=== PATIENT | male | born 1990 | race Caucasian/White ===

== ENCOUNTER 2021-09-09 17:36 | Emergency (ER) | payer OTHER, SELFPAY ==
--- NOTE | ~2021-09-09 | XR_ITS ---
XR finger 1st RT min 2V 09/09/2021 18:12 Indication: Right first finger pain after trauma Procedure: 3 views right first finger Comparison: No prior studies for comparison. Findings: There is an oblique nondisplaced fracture ventral base right first distal phalanx. Mild sof t tissue swelling. No foreign bodies. Impression: 1: Oblique nondisplaced fracture ventral base right first distal phalanx. Reviewed, dictated and finalized at location A. Impression: 1: Oblique nondisplaced fracture ventral base right first distal phalanx.
[2021-09-09 17:38] VITALS: BP 142/110; PULSE 73; RESP 18; TEMP 36.3; O2SAT 100
--- NOTE | 2021-09-09 17:56 | ED.UPPEXIN ---
HPI - Extremity Injury (Upper) General Chief Complaint: Extremity Injury, Upper <MYRNA Huffman Last Filed: 09/09/21 18:49> Stated Complaint: right thumb injury <MYRNA Huffman Last Filed: 09/09/21 18:49> Time Seen by Provider: 09/09/21 17:45 <MYRNA Huffman Last Filed: 09/09/21 18:49> Source: patient <MYRNA Huffman Last Filed: 09/09/21 18:49> Mode of arrival: ambulatory <MYRNA Huffman Last Filed: 09/09/21 18:49> Limitations: no limitations <MYRNA Huffman Last Filed: 09/09/21 18:49> History of Present Illness HPI narrative: This is a 31-year-old male that presents to the emergency department for right first finger injury sustained this morning. Reports he was playing his [employer] game. Reports he accidentally punched a wall. Reports bruising and swelling to the right first finger. Pain is worse with movement and relieved with rest. Pain is mostly at the interphalangeal joint. Denies decreased range of motion or numbness. <MYRNA Huffman Last Filed: 09/09/21 18:49> Related Data Home Medications: Home Medications Medication Instructions Recorded Confirmed No Home Medications 09/09/21 09/09/21 <MYRNA Huffman Last Filed: 09/09/21 18:49> Allergies/Adverse Reactions: Allergies Allergy/AdvReac Type Severity Reaction Status Date / Time No Known Allergies Allergy Verified 09/09/21 17:41 <MYRNA Huffman Last Filed: 09/09/21 18:49> Review of Systems Review of Systems: CONSTITUTIONAL: Denies fever MUSCULOSKELETAL: Reports joint pain, and myalgia. NEUROLOGIC: Denies numbness <MYRNA Huffman Last Filed: 09/09/21 18:49> All systems reviewed & are unremarkable except as noted in HPI and below <MYRNA Huffman Last Filed: 09/09/21 18:49> [facility] Past Medical History Medical History: Medical History (Updated 09/09/21 @ 18:49 by Akua Mcdonnell PA-C) No active medical problems <Akua Mcdonnell PA-C - Last Filed: 09/09/21 18:49> Social History Social History: Social History (Updated 09/09/21 @ 17:58 by Akua Mcdonnell PA-C) Substance use: never <Akua Mcdonnell PA-C - Last Filed: 09/09/21 18:49> Exam Narrative: GENERAL: Well-appearing, well-nourished, and in no acute distress. HEAD: Normocephalic, atraumatic. EYES: EOMI. EXTREMITIES: Normal range of motion. No obvious deformity. Right first finger with mild bruising. Normal radial pulses. Normal sensation SKIN: Warm, dry, no rash. NEURO: No focal deficits. Alert and oriented x3. PSYCH: Normal mood and affect <Akua Mcdonnell PA-C - Last Filed: 09/09/21 18:49> Course FINANCE ADMINISTRATOR/PA Physician Supervision I did not see this patient nor was the care plan discussed with me. I was available for evaluation and consultation, I agree with the documentation as above <Zaid Pena MD - Last Filed: 09/09/21 19:17> Vital Signs Vital signs: Vital Signs Temperature 36.3 C L 09/09/21 17:38 Pulse Rate 73 09/09/21 17:38 Respiratory Rate 18 09/09/21 17:38 Blood Pressure 142/110 H 09/09/21 17:38 Pulse Oximetry 100 09/09/21 17:38 Temperature 36.3 C L 09/09/21 17:38 Pulse Rate 73 09/09/21 17:38 Respiratory Rate 18 09/09/21 17:38 Blood Pressure 142/110 H 09/09/21 17:38 Pulse Oximetry 100 09/09/21 17:38 <Akua Mcdonnell PA-C - Last Filed: 09/09/21 18:49> Vital Signs Temperature 36.3 C L 09/09/21 17:38 Pulse Rate 73 09/09/21 17:38 Respiratory Rate 18 09/09/21 17:38 Blood Pressure 142/110 H 09/09/21 17:38 Pulse Oximetry 100 09/09/21 17:38 Temperature 36.3 C L 09/09/21 17:38 Pulse Rate 73 09/09/21 17:38 Respiratory Rate 18 09/09/21 17:38 Blood Pressure 142/110 H 09/09/21 17:38 Pulse Oximetry 100 09/09/21 17:38 <Zaid Pena MD - Last Filed: 09/09/21 19:17> MDM - Extremity Injury (Upper) MDM Jonnathan
== END 2021-09-09 18:55 | disposition home or self-care (01) ==
PROVIDERS: Emergency Provider Emergency Medicine
DX: S62.660A Nondisplaced fracture of distal phalanx of right index finger, initial encounter for closed fracture (principal); W22.01XA Walked into wall, initial encounter; Y93.C2 Activity, hand held interactive electronic device
CPT/HCPCS: 29130; 73140; 99284

== ENCOUNTER 2021-10-16 11:37 | Outpatient (CLI) | payer OTHER, SELFPAY ==
[2021-10-16 13:09] LABS: Influenza A QL RT-PCR Negative (Negative); Influenza B QL RT-PCR Negative (Negative); SARS-CoV-2 RNA PCR Negative (Negative)
== END 2021-10-16 11:38 | disposition home or self-care (01) ==
PROVIDERS: PCP Family Medicine; Visit Provider Nurse Practitioner Family
DX: J06.9 Acute upper respiratory infection, unspecified (principal); Z20.822 Contact with and (suspected) exposure to COVID-19
CPT/HCPCS: 87502; C9803; U0003; U0005

== ENCOUNTER 2022-10-09 17:20 | Emergency (ER) | payer OTHER, SELFPAY ==
--- NOTE | ~2022-10-09 | XR_ITS ---
XR chest 2V DATE: 10/09/2022 17:43 INDICATION: Fever, fatigue TECHNIQUE: 2 views COMPARISON: None FINDINGS: Bilateral hyperinflation. No pulmonary infiltrate or consolidation, pleural effusion or pul monary vascular congestion or pneumothorax. There is old pulmonary granulomatous disease. Normal heart size. No hilar or mediastinal enlargement. Minimal thoracolumbar dextroscoliosis. IMPRESSION: Bilateral hyperinflation; no active cardiopulmonary disease Reviewed, dictated and finalized at location A. OR WEB DEVELOPER
--- NOTE | 2022-10-09 17:24 | ED.URI ---
HPI - URI/Sore Throat General Chief Complaint: Upper Respiratory Infection Stated Complaint: BODY ACHES/COUGH/SNEEZING Time Seen by Provider: 10/09/22 17:28 Source: patient and RN notes reviewed Mode of arrival: ambulatory Limitations: no limitations History of Present Illness HPI Narrative: 32-year-old male presents with concern for 90 day history of body aches, cough, sneezing. He reports his daughter was diagnosed with influenza. He reports achiness of the mid back and under his arms. He denies shortness of breath. He denies fever. Reports some sweats and chills. He reports he has occasionally taken some [id number] multi symptom cold medicine med has not taken anything recently. MD elicited complaint: cough Related Data Allergies Allergy/AdvReac Type Severity Reaction Status Date / Time No Known Allergies Allergy Verified 10/09/22 17:34 Review of Systems Review of Systems: CONSTITUTIONAL: Reports malaise, chills, sweats EYES: Denies visual changes, redness, or discharge. ENT: Reports rhinorrhea, congestion, sneezing. Denies sinus pain, otalgia and sore throat. CARDIOVASCULAR: Denies chest pain, palpitations, or edema. RESPIRATORY: Reports cough. Denies dyspnea. GASTROINTESTINAL: Denies abdominal pain, nausea, vomiting, diarrhea SKIN: Denies rash or itching. MUSCULOSKELETAL: Reports myalgia. NEUROLOGIC: Reports headache. All systems reviewed & are unremarkable except as noted in HPI and below PMFSH Past Medical History Medical History (Updated 10/09/22 @ 17:52 by Janay Guzman NP) No active medical problems Social History Social History (Updated 09/09/21 @ 17:58 by Akua Mcdonnell PA-C) Substance use: never Comments At time of signature, agree with nursing past medical, surgical, social and family history. There is no relevant family history pertinent to the presenting complaint Exam Narrative: GENERAL: Nontoxic-appearing and in no acute distress. HEAD: Normocephalic EYES: PERRLA, conjunctivae clear ENT: Nares clear, turbinates edematous and erythematous, clear discharge. Mucous membranes moist. TM pearly johnson with sharp light reflex bilaterally; no tragal tenderness. Oropharynx not erythematous without lesions. Tonsils not enlarged and without exudate, no drooling, no hoarseness, no trismus, uvula midline. NECK: Supple. No lymphadenopathy CHEST: Scattered rhonchi, diminished in the bases. No wheezing, rhonchi, rales, or stridor. No respiratory distress, speaks in full sentences. HEART: Regular rate and rhythm. No murmur heard. SKIN: Warm, dry, no rash. NEURO: Alert and oriented x3. PSYCH: Normal mood and affect Course Course Emergency Course: Patient is aware of diagnosis, understands and agrees to treatment plan. Anticipatory guidance given. Patient agrees to follow-up as directed and is aware of reasons to seek care at the emergency department. Portions of this record may have been created with voice recognition software Level of Care: Express Care Visit Vital Signs Vital signs: Reviewed. MDM - URI/Sore Throat MDM Narrative Medical decision making narrative: Differential diagnosis considered: Schafer virus, strep pharyngitis, allergic rhinitis, upper respiratory tract infection, sinusitis, rhinosinusitis, nasopharyngitis. viral pharyngitis, otitis media, otitis externa, pneumonia, bronchitis, viral cough syndrome, viral syndrome, and influenza. Exam findings show no acute concerns or changes; patient is non-toxic appearing and is in no distress. Patient is appropriate for outpatient treatment and follow-up. Lab Data Attestation: I reviewed the patient's lab results. Imaging Data My impression: Images reviewed, interpreted by radiologist, agree, see report. Radiologist's impression: XR chest 2V DATE: 10/09/2022 17:43 INDICATION: Fever, fatigue? TECHNIQUE: 2 views? COMPARISON: None? FINDINGS: Bilateral hyperinflation. No pulmonary infiltrate or consolidation, pleural
[2022-10-09 17:34] VITALS: BP 118/70; PULSE 130; RESP 16; TEMP 37.6; O2SAT 98
== END 2022-10-09 18:00 | disposition home or self-care (01) ==
PROVIDERS: Emergency Provider Nurse Practitioner; PCP Family Medicine
DX: J40 Bronchitis, not specified as acute or chronic (principal)
CPT/HCPCS: 71046; 87804; 99213; G0463

== ENCOUNTER 2023-02-03 14:41 | Emergency (ER) | payer OTHER, SELFPAY ==
[2023-02-03 14:51] VITALS: BP 99/76; PULSE 129; RESP 16; TEMP 38.8; O2SAT 98
[2023-02-03 14:53] VITALS: BP 99/76; PULSE 129; RESP 16; TEMP 38.8; O2SAT 98
--- NOTE | 2023-02-03 15:38 | ED.URI ---
HPI - URI/Sore Throat General Chief Complaint: Upper Respiratory Infection Stated Complaint: sore throat,chills Time Seen by Provider: 02/03/23 15:38 Source: patient, RN notes reviewed and old records reviewed Mode of arrival: ambulatory Limitations: no limitations History of Present Illness HPI Narrative: 32 year old male who presents to the [facility] care with complaints of sore throat and chills today. Patient reports that his daughter had strep and also COVID last week. He states he did home COVID test 2 days ago and was negative, he has had COVID vaccinations.. Patient reports that he just started using CPAP thought that might be why throat was so dry feeling. Patient was also just diagnosed with Graves disease and just started on Medication today of methimazole,has lost 25 lbs recently. Patient is febrile in clinic. MD elicited complaint: fever and sore throat Pertinent past history: other (just diagnosed with Graves disease ) Onset (ago): day(s) (today) Pain scale (0-10): 7 Related Data Home Medications Medication Instructions Recorded Confirmed methimazole 10 mg tablet 10 mg PO DAILY 02/03/23 02/03/23 metoprolol succinate 25 mg 25 mg PO DAILY 02/03/23 02/03/23 tablet,extended release 24 hr Allergies Allergy/AdvReac Type Severity Reaction Status Date / Time No Known Allergies Allergy Verified 02/03/23 14:51 Review of Systems Review of Systems: CONSTITUTIONAL: REports malaise, chills, sweats, or fever. EYES: Denies visual changes, redness, or discharge. ENT: Reports rhinorrhea, congestion,no sinus pain, no otalgia, positive for sore throat. CARDIOVASCULAR: Denies chest pain, palpitations, or edema. RESPIRATORY: Reports no cough.? Denies dyspnea. GASTROINTESTINAL: Denies abdominal pain, nausea, vomiting, diarrhea SKIN: Denies rash or itching. MUSCULOSKELETAL: Denies myalgia. NEUROLOGIC: Denies headache. All systems reviewed & are unremarkable except as noted in HPI and below PMFSH Past Medical History Medical History (Updated 02/04/23 @ 21:01 by Alysa Casiano NP) Graves disease Sleep apnea treated with continuous positive airway pressure (CPAP) Tachycardia Social History Social History (Updated 02/04/23 @ 20:56 by Alysa Casiano NP) Smoking status: Never smoker Substance use: never Living arrangements: with family Gender identity (if verbalized by the patient): Male Comments At time of signature, agree with nursing past medical, surgical, social and family history. There is no relevant family history pertinent to the presenting complaint Exam Narrative: GENERAL: Well-appearing, well-nourished, and in no acute distress. HEAD: Normocephalic EYES: PERRLA, conjunctivae clear ENT: Nares clear, turbinates edematous and erythematous, clear discharge. Mucous membranes moist. TM pearly johnson with dull light reflex bilaterally; no tragal tenderness. Oropharynx erythematous without lesions. Tonsils red enlarged and without exudate, no drooling, no hoarseness, no trismus, uvula midline. NECK: Supple. No lymphadenopathy CHEST: Clear to auscultation, breath sounds equal. No wheezing, rhonchi, rales, or stridor. No respiratory distress, speaks in full sentences.SAO2 98% on room air HEART: Regular rate and rhythm. No murmur heard. SKIN: Warm, dry, no rash. NEURO: Alert and oriented x3. PSYCH: Normal mood and affect Course Course Emergency Course: Patient is aware of diagnosis, understands and agrees to treatment plan.? Anticipatory guidance given.? Patient agrees to follow-up as directed and is aware of reasons to seek care at the emergency department. Portions of this record may have been created with voice recognition software Level of Care: Express Care Visit Vital Signs Vital signs: Vital Signs Temperature 38.8 C H 02/03/23 14:51 Pulse Rate 129 H 02/03/23 14:51 Respiratory Rate 16 02/03/23 14:51 Blood Pressure 99/76 L 02/03/23 14:51 Pulse Oximetr
== END 2023-02-03 15:57 | disposition home or self-care (01) ==
PROVIDERS: Emergency Provider Registered Nurse; PCP Family Medicine
DX: J06.9 Acute upper respiratory infection, unspecified (principal)
CPT/HCPCS: 87081; 87880; 99213; G0463

== ENCOUNTER → 2023-04-02 11:17 | Outpatient (CLI) | payer OTHER, SELFPAY ==
--- NOTE | ~2023-04-02 | US_ITS ---
EXAMINATION: US thyroid DATE: 04/02/2023 11:35 INDICATION: Thyrotoxicosis with diffuse goiter, without thyrotoxic crisis TECHNIQUE: Multiple ultrasound images of the thyroid were obtained. COMPARISON: None. FINDINGS: The right thyroid lobe measures 5.9 x 2.9 x 2.7 cm. The left thyroid lobe measures 6.7 x 2.9 x 3.1 c m. There is heterogeneous echogenicity throughout the thyroid gland. No discrete nodules identified, noting that sensitivity for nodules is decreased in the presence of heterogeneous echogenicity. Diff usely increased vascular flow is present. IMPRESSION: Heterogeneous thyroid echogenicity as can be seen with Graves' disease and Cassie's thyroiditis, d epending on the clinical context. Reviewed, dictated and finalized at location K. IMPRESSION: Heterogeneous thyroid echogenicity as can be seen with Graves' disease and Hash imoto's thyroiditis, depending on the clinical context.
== END ==
PROVIDERS: PCP Internal Medicine; Visit Provider Internal Medicine
DX: E05.00 Thyrotoxicosis with diffuse goiter without thyrotoxic crisis or storm (principal)
CPT/HCPCS: 76536

== ENCOUNTER 2023-10-04 12:21 | Emergency (ER) | payer OTHER, SELFPAY ==
--- NOTE | 2023-10-04 12:48 | ED.URI ---
HPI - URI/Sore Throat General Chief Complaint: Upper Respiratory Infection Stated Complaint: cough,sore throat Time Seen by Provider: 10/04/23 12:47 Source: patient, RN notes reviewed and old records reviewed Mode of arrival: ambulatory Limitations: no limitations History of Present Illness HPI Narrative: 33-year-old male presents to Express Care with complaint of cough, congestion, scratchy through for about 5 days. Patient denies shortness of breath fevers, wheezing, headache. Patient has been taking [id number] medications with no relief MD elicited complaint: cough, sore throat and nasal congestion Onset (ago): day(s) (5) Related Data Allergies Allergy/AdvReac Type Severity Reaction Status Date / Time No Known Allergies Allergy Verified 10/04/23 12:58 Review of Systems Constitutional: Constitutional: Reports no additional constitutional complaints Eyes: Eyes: Reports no additional eye complaints ENT: Reports as per HPI, Reports nasal congestion and Reports sore throat Cardiovascular: Cardiovascular: Reports no additional cardiovascular complaints Respiratory: Respiratory: Reports as per HPI and Reports cough ( productive cough) Neurologic: Reports system reviewed and no additional complaints, except as documented PMFSH Past Medical History Medical History Elevated liver enzymes Goiter Graves disease H/O hyperthyroidism Sleep apnea treated with continuous positive airway pressure (CPAP) Tachycardia Thyroid eye disease Vasectomy planned Surgical History Surgical History H/O vasectomy Family History Family History Son Asthma Sibling Asthma Father Asthma Grandparent Hypertension Social History Social History Smoking status: Former smoker Tobacco type: e-cigarettes/vaping Alcohol intake: current Alcohol use details: 1 per month maybe Substance use: never Living arrangements: with family Gender identity (if verbalized by the patient): Male Comments At the time of my signature, I reviewed and agree with the nursing past medical, surgical, social, and family history. There is no relevant family history pertinent to the patient complaint. Exam Const: General: cooperative, healthy appearing, no acute distress and well nourished Nutritional Appearance: well nourished Orientation/consciousness: patient oriented x3 Limitations: no limitations HENMT: Head: normal to inspection and normocephalic Ears: external ears normal, TM's normal bilaterally, mastoids normal and Abnormal EAC present Face/Nose/Sinus: normal facial exam Face and sinus: normal facial exam Mouth: Yes Normal oral and palatal mucosa present, Yes oropharynx normal and Yes moist mucous membranes Throat: posterior oropharynx normal, tonsils normal, uvula midline and no uvular edema Eyes: General: appearance normal, both eyes and all related structures Sclera: sclerae normal Pupils: Equal, round and reactive pupils present Resp: Effort & Inspection: normal respiratory effort, able to speak in complete sentences, no audible wheezes, no cough, no respiratory distress and no retractions Auscultation: clear to auscultation bilaterally, no crackles, no rales, no rhonchi and no wheezes Cardio: Rate: regular rate Rhythm: regular rhythm Skin: General skin exam: normal color and no rashes or lesions noted Neuro: General: patient oriented x3 Cranial nerves: Yes Equal, round and reactive pupils present Psych: Appearance: grossly normal Course Course Emergency Course: Some parts of this dictation were generated by voice recognition software and may contain typographical and/or grammatical inaccuracies. Level of Care: Express Care Visit Vital Signs Vital signs: Reviewed MDM - URI/Lily
[2023-10-04 12:49] VITALS: BP 95/67; PULSE 107; RESP 16; TEMP 37; O2SAT 99
== END 2023-10-04 13:12 | disposition home or self-care (01) ==
PROVIDERS: Emergency Provider Registered Nurse
DX: J20.9 Acute bronchitis, unspecified (principal); Z87.891 Personal history of nicotine dependence
CPT/HCPCS: 99213; G0463